=== PATIENT | female | born 1945 | race Hispanic/Latino ===

== ENCOUNTER 2017-12-31 07:35 | Inpatient (IN) | payer MEDICARE, MEDICAID ==
[2017-12-31] MEDS ORDERED: Meclizine HCl 25 MG TAB ONE (08:22)
[2017-12-31] MEDS ORDERED: Diazepam 10 MG/2 ML SYRINGE IVP SCH (08:30)
[2017-12-31 08:34] LABS: #Eosinphils 0.2 thou/uL (0.0-0.7); #Lymphocytes 2.2 thou/uL (1.20-3.40); #Monocytes 0.4 thou/uL (0.11-0.59); #Neutrophils 6.6 thou/uL (1.40-6.50); %Basophils 0.4 % (0.0-1.0); %Eosinophils 1.9 % (0.0-10.0); %Lymphocytes 23.6 % (21.0-51.0); %Monocytes 3.8 % (0.0-10.0); %Neutrophils 70.3 % (42.0-75.0); Hemoglobin 13.8 g/dL (12.0-16.0); Mean Corpuscular HGB CONC 33.2 g/dL (32.0-36.0); Mean Corpuscular Hemoglobin 31.6 pg (27.0-31.0); Mean Corpuscular Volume 95.3 fl (81.0-99.0); Platelet Count 272 thou/uL (130-400); RBC Distribution Width 11.6 % (11.5-14.5); Red Blood Cell (RBC) Count 4.35 mill/uL (4.20-5.40); White Blood Cell (WBC) Count 9.4 thou/uL (4.8-10.8)
[2017-12-31 08:53] LABS: ALT (SGPT) 25 U/L (8-55); AST (SGOT) 29 U/L (5-34); Acetaminophen Less than 6.0 mcg/mL (10.0-30.0); Albumin 3.9 g/dL (3.4-4.8); Alcohol Less than 10 mg/dL (Less than 10); Alkaline Phosphatase 134 U/L (40-150); Anion Gap 12 mmol/L (10-20); BUN (Urea Nitrogen) 11 mg/dL (9.8-20.1); Bilirubin, Total 0.5 mg/dL (0.2-1.2); CK (CPK) 115 U/L (29-168); Calc. Creatinine Clearance 0 mL/min (70-130); Calcium 9.6 mg/dL (7.8-10.44); Carbon Dioxide 29 mmol/L (23-31); Chloride 103 mmol/L (98-107); Estimated GFR-MDRD 67; Globulin 3.2 g/dL (2.4-3.5); Glucose 244 mg/dL (83-110); Potassium 3.8 mmol/L (3.5-5.1); Protein, Total 7.1 g/dL (6.0-8.3); Salicylate Less than 8.0 mg/dL (15.0-30.0); Sodium 140 mmol/L (136-145)
[2017-12-31 09:02] LABS: CKMB 1.4 ng/mL (0-6.6); Troponin I Less than 0.010 ng/mL (< 0.028)
--- NOTE | 2017-12-31 09:08 | CT ---
NONCONTRAST HEAD CT: HISTORY: Weakness. Dizziness. The patient stood up and began feeling weak. The patient fell and hit back of her head dresser. COMPARISON: None. TECHNIQUE: Noncontrast head CT is performed from the skull base to the skull vertex. FINDINGS: Small extraaxial hematoma along the left parietal convexity, near the vertex. Minimal mass effect of the underlying brain parenchyma. No midline shift. Basilar cisterns are patent. Age appropriate atrophy. Cortical turcios-white matter differentiation is preserved. Ventricles and sulci are patent and symmetric. White matter hypodensities and chronic small-vessel i schemic changes are noted. Adequate aeration of the sinuses and mastoid air cells. Minimal bilateral sphenoid sinus disease. T he calvarium is intact. IMPRESSION: Left extraaxial hematoma, near the vertex. Results of the study were discussed with Dr. Magaña 12/31/17 at 8:46 a.m. CODE CR POS: OFF
[2017-12-31 09:27] LABS: Bilirubin Negative (Negative); Blood, Urine Negative (Negative); Clarity CLEAR (Clear); Glucose, Urine (Dipstick) 250 mg/dL (Negative); Leukocyte Small (Negative); Nitrite Negative (Negative); Protein, Urine (Dipstick) Negative (Neg-Trace); Specific Gravity, Urine 1.011 (1.002-1.036); Urobilinogen 0.2 mg/dL (0.2-1.0)
[2017-12-31 09:30] LABS: Bacteria/HPF None Seen HPF (None Seen); Hyaline Casts/LPF 0-3 HYALINE CAST LPF (0-3 Hyaline); Pathc Cast-AUWi Flag 0.54 (0-2.49); RBC/HPF 0-3 HPF (0-3); Squamous Epithelial 0-3 HPF (0-3)
--- NOTE | 2017-12-31 09:37 | RAD ---
ONE VIEW CHEST: History: Dyspnea. Dizziness. Patient fell this morning. FINDINGS: Normal cardiac silhouette. Patchy interstitial and alveolar opacities throughout the lung parenchyma which may represent chronic change. No masses or consolidation. No pneumothorax or pleural effusion. IMPRESSION: Presumed chronic changes of the lung parenchyma. Superimposed infiltrate cannot be excluded. Continue d surveillance is warranted. POS: OFF
--- NOTE | 2017-12-31 09:49 | CT ---
CT OF THE CERVICAL SPINE PERFORMED WITHOUT CONTRAST ENHANCEMENT: History: Patient status post fall with neck injury. FINDINGS: Vertebral bodies are normal in height. There is disc narrowing at the C5-6 and C6-7 levels. There are degenerative facet changes present. At the C3-4 level, asymmetric left facet changes cause moderate left foraminal narrowing. There is mo re severe asymmetric changes at C4-5 on the left and more severe foraminal narrowing. There is some b orderline bilateral foraminal narrowing at the C5-6 and C6-7 levels. There is no CT evidence of fract ure. Lung apices show what appears to be some areas of airtrapping and chronic lung change with ground gla ss opacity interspersed with areas of air trapping and a more mosaic pattern. Bilateral thyroid nodules are noted. IMPRESSION: 1. No CT evidence of fracture or the cervical spine. 2. Bilateral thyroid nodules. 3. Lung changes as discussed above. POS: [facility]
--- NOTE | 2017-12-31 10:06 | CT ---
CT PULMONARY ANGIOGRAM WITH IV CONTRAST AND 3D POSTPROCESSING: HISTORY: Dyspnea, dizziness. FINDINGS: No filling defects are seen in the contrast-opacified pulmonary arterial vasculature to suggest pulmo nary embolism. No thoracic aortic aneurysm or dissection is seen. No pleural or pericardial effusio ns are identified. There are emphysematous changes in the lung macias bilaterally. There are degene rative changes in the spine. IMPRESSION: No CT evidence of pulmonary embolism. POS: [facility]
[2017-12-31 10:10] LABS: Cocaine Metabolite Screen Not Detected (NotDetected); Medtox Reader # READER 1; Methamphetamine Not Detected (NotDetected); Phencyclidine (PCP) Not Detected (NotDetected); THC/Cannabinoid Screen Not Detected (NotDetected)
[2017-12-31 10:11] LABS: Amphetamine Not Detected (NotDetected); Barbiturates Screen Not Detected (NotDetected); Benzodiazepine Screen Not Detected (NotDetected); Medtox Control Line Valid? VALID (VALID); Methadone Not Detected (NotDetected); Opiate Screen Not Detected (NotDetected); Oxycodone Screen Not Detected (NotDetected); Tricyclic Screen Not Detected (NotDetected)
[2017-12-31] MEDS ORDERED: Dextrose 50% Abboject 50 ML SYRINGE SLOW IVP PRN (11:14)
[2017-12-31] MEDS ORDERED: Ondansetron ODT 4 MG TAB PO PRN (11:14)
[2017-12-31] MEDS ORDERED: Dextrose 5% in Water 1,000 ML IV PRN (11:14)
[2017-12-31] MEDS ORDERED: hydrALAZINE 20 MG/ML VIAL SLOW IVP PRN ×2 (11:14→15:37)
[2017-12-31] MEDS ORDERED: Acetaminophen 500 MG TAB PO PRN (11:28)
[2017-12-31] MEDS ORDERED: ISOVUE-370 76%-LOCM 1 ML ONE (11:37)
--- NOTE | 2017-12-31 13:36 | ULT ---
BILATERAL CAROTID DUPLEX ULTRASOUND: HISTORY: Altered mental status. TECHNIQUE: Rodriguez scale ultrasound with color flow and spectral Doppler imaging of the extracranial carotid artery systems is performed bilaterally. FINDINGS: No significant intimal thickness or plaque formation is seen on either side. The peak systolic velocity in the right ICA measures 44 cm/s with an end-diastolic velocity of 7 cm/s and a systolic ratio of 0.46. The peak systolic velocity in the left ICA measures 83 cm/s with an end-diastolic velocity of 28 cm/s and a systolic ratio of 0.93. Flow in both vertebral arteries remains antegrade. IMPRESSION: No evidence of hemodynamically significant stenosis in either internal carotid artery. POS: [facility]
--- NOTE | 2017-12-31 14:23 | CON ---
DATE OF CONSULTATION: 12/31/2017 Fausto Suero PA-C, dictating for Willy Velez MD This is a 50 minutes initial patient consult in which greater than 50% of the exam was spent in couns eling and coordinating patient's care. The remainder of the exam was spent in review of patient's ma dical records and review of appropriate imaging studies. CHIEF COMPLAINT: Status post fall with left occipital region subdural hematoma. HISTORY OF PRESENT ILLNESS: Ms. Case is a pleasant 72-year-old female who presents to [facility] Emergency Room for the above complaints. Apparently, the patient has had intermittent dizziness f or the past several months and felt unsteady on her feet. She attempted to get out of bed and holdin g onto her dresser, but as soon as she let go became dizzy and fell on the back of the head. She is on 81 mg of aspirin. She does have hypertension and diabetes mellitus type 2 and states that when sh e gets dizzy, she typically checks her blood pressure and glucose levels and these have been stable o angel the past several weeks. She has no neck pain or arm pain complaints. She has no weakness compla ints or any weakness in any of the extremities. She does not typically use a cane or walker for gait stability. Review of the patient's head CT shows a small collection of subdural hematoma in the lef t parietal region that does not cause mass effect or midline shift. There is no evidence of skull fr acture. Review of patient's cervical spine CT shows a degenerative disk disease and spondylosis thro ugh the cervical spine, but no obvious acute abnormality and appears negative for fracture. PHYSICAL EXAMINATION: The patient is awake, alert, and appropriate. She has full strength in the bi lateral upper and bilateral lower extremities with no worrisome myelopathic features on exam includin g negative Baptiste's bilaterally and no increased tone. Her GCS currently is 15. She has no pronato r drift and she is able to complete index [id number] testing without difficulty. Pupils are equa l, round, and reactive bilaterally. She has no worrisome tenderness to palpation along the midline o f the cervical spine or in the bilateral musculature of the cervical spine. IMPRESSION AND DIAGNOSIS: Status post fall with a left parietal region small subdural hematoma. PLAN: I discussed the patient's case and imaging with Dr. Velez. At this time, the patient will be admitted for overnight observation with q. 2 hour neuro checks. I would like her systolic blood pre ssure to be less than 160 and elevate her head of bed at 30 degrees at all times. She has no fractur e on CT scan and no tenderness to palpation into the neck, she does not require use of the cervical s pine collar. She may advance her diet as tolerated. Our Trauma Service will admit the patient and h elp workup the patient's cause of dizziness. Please call with any changes in the patient's neurologi c status. Otherwise, we will follow up with a repeat head CT for tomorrow.
--- NOTE | 2017-12-31 16:12 | HP ---
DATE OF ADMISSION: 12/31/2017 CONSULTING PHYSICIAN: Jerry Magaña M.D. ADMITTING PHYSICIAN: Yoav Pillai D.O. CHIEF COMPLAINT: Left parietal subdural hematoma. HISTORY OF PRESENT ILLNESS: The patient reports that this morning she tried to get out of bed, felt weak and attempted to hold onto her dresser, but was unable to, falling over backwards and striking t he back of her head on the floor. She crawled back into bed and waited for some time hoping the feel ing would pass before she got out of bed and realized that she was still weak and unable to stand on her own. She then called 911 and was brought in by EMS to [place] ED. She was found upon evaluat ion to have a left parietal subdural hematoma. Neurosurgery was consulted. They recommended to admi t the patient to the stroke floor for observation overnight. PAST MEDICAL HISTORY: Significant for stroke 15 years ago, hypertension, diabetes mellitus, and hype rlipidemia. MEDICATIONS: Patient reports taking lisinopril and unknown diuretic, metformin, glipizide and insuli n of unknown type. The patient also reports taking a multivitamin daily. PAST SURGICAL HISTORY: The patient reports a history of tonsillectomy at 16 years old. FAMILY HISTORY: Mother of a cerebrovascular accident. ALLERGIES: The patient reports no allergies to medications. SOCIAL HISTORY: The patient denies drug use, alcohol use, or smoking. PSYCHIATRIC HISTORY: The patient denies any anxiety, depression or other psych history. REVIEW OF SYSTEMS: Significant for occasional headache, but otherwise negative except as mentioned i n the HPI. PHYSICAL EXAMINATION: VITAL SIGNS: BP 166/71, pulse 71, respirations 20, temperature 97.9, O2 sat 96% on room air. GENERAL APPEARANCE: Adult female who appears her stated age in no acute distress. HEENT: Head, her head is normocephalic and atraumatic. Eyes, PERRLA, EOMI. Ears, she has no blood or discharge in her external auditory canals bilaterally. Nose, her nares are patent without blood o r discharge. Mouth: Oropharynx is pink and moist. Dentition, she is partially edentulous but other [place] no trauma. NECK: Supple. Trachea is midline. She has no tenderness. RESPIRATORY: Her lungs are clear to auscultation bilaterally with normal effort. CARDIOVASCULAR: She has a regular rate and rhythm. Normal S1 and S2. Distal pulses 2+ bilaterally. ABDOMEN: Soft, obese, but nontender. Bowel sounds are normal. EXTREMITIES: She is neurovascularly intact x4. NEUROLOGIC: Her GCS is 15. She is alert and oriented x4. She has no focal neurologic findings. PSYCHIATRIC: Her mood and affect are appropriate. LABORATORY FINDINGS: Hematology: WBC is 9.4, hemoglobin 13.8, hematocrit 41.5, platelets 272. Chem istry: Sodium 140, potassium 3.8, chloride 103, bicarbonate 29, BUN 11, creatinine 0.83, glucose 244 , estimated GFR 67. Cardiac enzymes, troponin less than 0.10, CK-MB 1.4. Toxicology screen was nega tive. Urine screen is significant for glucose of 250, a small leukocyte esterase and urine wbcs of 7 -10. RADIOGRAPHIC FINDINGS: Noncontrast head CT. Impression: Left extraaxial hematoma, near the vertex. Chest x-ray, impression, presumed chronic changes of the lung parenchyma. Superimposed infiltrate cannot be excluded. Continued surveillance is warranted. Cervical spine CT, impression: 1. No CT evidence of fracture of the cervical spine. 2. Bilateral thyroid nodules. 3. Lung changes as discussed above. Chest and thorax CTA, impression: No CT evidence of pulmonary embolism. Carotid Doppler study, impression: No evidence of hemodynamically significant stenosis in either internal carotid artery. ASSESSMENT AND PLAN: 1. Status post ground level fall. 2. Left parietal subdural hematoma. PLAN: The patient will be admitted to the stroke floor for observation, monitoring of neurologic sta tus and repeat imaging in the morning. Pain control will be addressed and other supportive care breanna ures will be implemented as needed. Per Neurosurgery, no neurosurgical intervention is required at t his time. Patient will likely discharge home tomorrow if she remains stable. This patient was seen and examined along with Dr. Yoav Pillai who agrees with the assessment and plan.
[2017-12-31] MEDS ORDERED: Prevnar 13-Val Conj/PF 0.5 ML SYRINGE IM ONE (18:45)
--- NOTE | 2017-12-31 22:53 | PRG ---
DATE OF SERVICE: 12/31/2017 SUBJECTIVE: The patient is in hospital day #1 from fall possible syncopal episode. There are no new complaints at this time. No complaint of headache. The patient remains GCS 15. No acute issues at this time. OBJECTIVE: Vital signs have been reviewed, otherwise have been stable. Physical exam is unchanged f rom history and physical. ASSESSMENT AND PLAN: Continue care as noted in the history and physical. Continue to monitor. I wi ll reassess in the a.m. if there are any changes. Neurosurgery to continue to follow.
[2018-01-01 05:28] LABS: #Basophils 0.1 thou/uL (0.0-0.2); #Eosinphils 0.3 thou/uL (0.0-0.7); #Lymphocytes 2.7 thou/uL (1.20-3.40); #Monocytes 0.6 thou/uL (0.11-0.59); #Neutrophils 6.1 thou/uL (1.40-6.50); %Basophils 0.8 % (0.0-1.0); %Eosinophils 2.9 % (0.0-10.0); %Lymphocytes 27.3 % (21.0-51.0); %Monocytes 6.6 % (0.0-10.0); %Neutrophils 62.4 % (42.0-75.0); Hemoglobin 13.2 g/dL (12.0-16.0); Mean Corpuscular HGB CONC 32.8 g/dL (32.0-36.0); Mean Corpuscular Hemoglobin 31.5 pg (27.0-31.0); Mean Corpuscular Volume 95.9 fl (81.0-99.0); Mean Platelet Volume 8.1 fL (7.4-10.4); Platelet Count 277 thou/uL (130-400); RBC Distribution Width 11.6 % (11.5-14.5); White Blood Cell (WBC) Count 9.7 thou/uL (4.8-10.8)
[2018-01-01 05:35] LABS: Anion Gap 10 mmol/L (10-20); BUN (Urea Nitrogen) 11 mg/dL (9.8-20.1); Calc. Creatinine Clearance 82 mL/min (70-130); Calcium 9.4 mg/dL (7.8-10.44); Carbon Dioxide 29 mmol/L (23-31); Chloride 102 mmol/L (98-107); Estimated GFR-MDRD 71; Glucose 208 mg/dL (83-110); Potassium 3.3 mmol/L (3.5-5.1); Sodium 138 mmol/L (136-145)
--- NOTE | 2018-01-01 07:48 | CT ---
PRELIMINARY REPORT/[facility]/EMERGENCY AFTER HOURS PROCEDURE: EXAM: CT Head Without Intravenous Contrast CLINICAL HISTORY: 72 years old, female; Signs and symptoms; Other: Sdh; Patient HX: F/u sdh TECHNIQUE: Axial computed tomography images of the head/brain without intravenous contrast. COMPARISON: CT Brain WO Con 2017-12-31 08:34 FINDINGS: Small left subdural hematoma in the high left parietal region is not significantly changed in size or appearance in the short interval. No definite new hemorrhage in the interval. Very mild focal mass effect, unchanged. No significant midline shift. Ventricle size is unchanged. There is relatively symmetrical decreased attenuation in the periventricular white matter, likely fro m microvascular disease. There is an old lacunar infarct in the left basal ganglia region, unchanged. No definite acute infarct by CT. Minimal mucosal thickening in the sphenoid sinus. IMPRESSION: Small left subdural hematoma is not significantly changed in size or appearance. No definite new hemorrhage in the interval. Very mild focal mass effect, unchanged. No significant midline shift. No significant interval change. Thank you for allowing us to participate in the care of your patient. Dictated and Authenticated by: Brian Godoy MD 01/01/2018 4:55 AM Central Time ([place] & [place]) FINAL REPORT EMERGENCY AFTER HOURS CT BRAIN WITHOUT CONTRAST: Date: 01/01/18 COMPARISON: 12/31/17. FINDINGS/IMPRESSION: I agree with the findings and impression given in the preliminary report per [facility] physician. There is a small, stable left subdural hematoma. POS: OFF
[2018-01-01] MEDS ORDERED: Potassium Chloride 40 MEQ in Premix Bag 1 BAG IVPB SCH (08:00)
[2018-01-01] MEDS ORDERED: Potassium Chloride 40 MEQ, Admixture Fee 1 EACH in Sodium Chloride 0.9% 250 ML 250 ML IVPB SCH (08:00)
[2018-01-01] MEDS: Lisinopril 10 MG TAB PO SCH (09:22)
[2018-01-01] MEDS: Triamterene/Hydrochlorothiazide 37.5 mg/25 mg Tablet PO SCH (09:23)
--- NOTE | 2018-01-01 12:53 | PRG ---
DATE OF SERVICE: 01/01/2018 This is a 30 minutes initial hospital visit note in which 30 minutes were spent in review the imaging record, evaluation and examination of the patient, and formulation of a plan. Greater than 50% time was spent in counseling on Ms. Adri Case, date of 1945. CHIEF COMPLAINT: Small left acute subdural hematoma, status post fall. HISTORY OF PRESENT ILLNESS: I reviewed the notes of my colleague Fausto Suero PA-C, and agree wit h its content. Ms. Case is a very pleasant 72-year-old woman who has had dizziness in the past and fell. She is on a baby aspirin. Head CT demonstrated a very small subdural hematoma in the lef t parietal region. No worrisome mass effect or midline shift. CT scan of the neck was negative for acute abnormality. This morning on exam, she is alert, appropriate and has a GCS of 15 and her repea t head CT was stable. IMPRESSION AND PLAN: She may be dismissed at endpoint. There is no worrisome neurosurgical issue in regards to Ms. Case at this time. We will arrange for followup in my clinic. We discussed th is all with her. DIAGNOSIS: Left acute subdural hematoma.
[2018-01-01] MEDS: Insulin Regular 300 UNITS/3 ML VIAL SC PRN ×2 (13:38→17:50)
[2018-01-01 13:53] VITALS: BMI 32.4
--- NOTE | 2018-01-01 16:01 | PRG ---
DATE OF SERVICE: 01/01/2018 ATTENDING PHYSICIAN: Yoav Pillai D.O. SUBJECTIVE: The patient is a 72-year-old female who was admitted one day ago after a fall with resulting traumatic subdural hematoma. She has had close neurologic monitoring and repeat CT scan this morning is stable and she has remained GCS of 15. She is reporting generalized weakness. PHYSICAL EXAMINATION: VITAL SIGNS: Temperature 98.5, pulse 93, respirations 20, O2 sat 93% on room air, blood pressure 144/73. CONSTITUTIONAL: Patient is sitting on edge of bed, alert and oriented, in no acute distress. PULMONARY: No respiratory distress noted. RESPIRATORY: Even and unlabored. Bilateral breath sounds clear. CARDIOVASCULAR: Regular rate and rhythm. No ectopy on telemetry strip. ABDOMEN: Soft, nontender, and nondistended. EXTREMITIES: Moves all extremities well. Cap refill brisk. Neurovascularly intact. NEUROLOGIC: GCS of 15. Awake, alert and oriented x3. DIAGNOSTIC IMAGING: Small left subdural hematoma. ASSESSMENT: 1. Status post ground level fall. 2. Traumatic subdural hematoma. 3. Neurosurgery following. 4. Generalized weakness. PLAN: 1. Patient has been cleared for discharge by Neurosurgery Service. She is to follow up with Dr. Velez, which he will arrange in his clinic. 2. PT/OT evaluation. 3. Rehabilitation referral. 4. A 2D echocardiogram today. 5. Carotid Doppler bilateral study done yesterday with no evidence of significant stenosis in carotids. The patient was seen and examined with Dr. Pillai on morning rounds. Dr. Pillai agrees with the assessment and plan. [facility]
[2018-01-02] MEDS: Triamterene/Hydrochlorothiazide 37.5 mg/25 mg Tablet PO SCH (08:14)
[2018-01-02] MEDS: Insulin Regular 300 UNITS/3 ML VIAL SC PRN ×3 (08:15→16:41)
[2018-01-02] MEDS: Lisinopril 10 MG TAB PO SCH (08:16)
[2018-01-02] MEDS: metFORMIN 500 MG TAB PO SCH ×2 (08:56→16:41)
[2018-01-02] MEDS: glipiZIDE 5 MG TAB PO SCH (16:41)
--- NOTE | 2018-01-02 17:34 | PRG ---
DATE OF SERVICE: 01/02/2018 ATTENDING PHYSICIAN: Dr. Yova Pillai. SUBJECTIVE: The patient is a 72-year-old female who was admitted on 12/31/2017 after suffering a adelfo und level fall, resulting in a traumatic subdural hematoma. She has been neurologically normal throu ghout her stay and vocalizes no complaints. On exam this morning, she does report a history of gener alized weakness, which she says was the result of her falling. OBJECTIVE: VITAL SIGNS: Blood pressure 116/71, pulse 92, temperature 97.4, respirations 16 and O2 sat 93% on ro om air. GENERAL: The patient is a middle-aged adult female in no acute distress. HEENT: She is normocephalic and atraumatic. RESPIRATORY: Breath sounds are clear to auscultation bilaterally with normal effort. CARDIOVASCULAR: She has regular rate and rhythm. Normal S1 and S2. ABDOMEN: Soft, obese and nontender. Bowel sounds are normal. EXTREMITIES: She is neurovascularly intact x4. She moves all extremities well. NEUROLOGIC: She has a GCS of 15. She is alert and oriented x3. She has no focal deficits. LABORATORY FINDINGS: Today's labs are significant for a glucose of 260. RADIOGRAPHIC FINDINGS: There are no radiographs reviewed today. ASSESSMENT: 1. Status post ground level fall. 2. Traumatic subdural hematoma. 3. Generalized weakness. PLAN: The patient continues to be stable neurologically and medically she appears to be stable for d ischarge pending evaluation of echocardiogram, which was ordered. She will likely discharge home, gi usama that she has been evaluated by rehab and found to not be an appropriate rehab candidate. She has also been found to be inappropriate for nursing home. The patient reports that she has a daughte r who will come and stay with her for a week as well as an ex- who will come and stay with her and help her out. She will likely be discharged to home this weekend with outpatient home health co [place] to physical and occupational therapy.
[2018-01-03] MEDS: Insulin Regular 300 UNITS/3 ML VIAL SC PRN ×2 (08:17→10:56)
[2018-01-03] MEDS: glipiZIDE 5 MG TAB PO SCH (08:19)
[2018-01-03] MEDS: metFORMIN 500 MG TAB PO SCH (08:19)
[2018-01-03] MEDS: Triamterene/Hydrochlorothiazide 37.5 mg/25 mg Tablet PO SCH (08:19)
[2018-01-03] MEDS: Lisinopril 10 MG TAB PO SCH (08:19)
[2018-01-03 11:20] VITALS: BP 116/60; TEMP 98.1
--- NOTE | 2018-01-03 13:45 | DIS ---
DATE OF ADMISSION: 12/31/2017 DATE OF DISCHARGE: 01/03/2018 ADMITTING PHYSICIAN: Dr. Yoav Pillai. DISCHARGING PHYSICIAN: Dr. Yoav Pillai. CONSULTING PHYSICIAN: Dr. Willy Velez, Neurosurgery. DISCHARGE CONDITION: Good. DISCHARGE DISPOSITION: Discharged to home. DISCHARGE MEDICATIONS: No new prescriptions. The patient may resume home medications. DISCHARGE FOLLOWUP: Follow up Dr. Velez 10 days; Dr. Galvan, PCP [address] Pillai p[address]r.n. DISCHARGE ACTIVITY: As tolerated. BRIEF HISTORY OF HOSPITALIZATION: Ms. Case is a 72-year-old female who presented to [facility] after a ground level fall. Apparently, she has had intermittent dizziness and felt lightheaded on the day of admission. She stated she became weak and was unable to continue standing and fell back, striking her head on the dressing room floor. She was on 81 mg of home aspirin. She was transported to [facility] where diagnostic evaluation identified a left parietal region small subdural hematoma. She was evaluated in the ER by Dr. Pillai and admitted to the surgical floor. She was also evaluated by Dr. Velez, neurosurgeon. He did not recommend any neurosurgical intervention. She had bilateral carotid duplex study, which did not show any significant stenosis. She also underwent an echocardiogram, which showed normal ventricular size and ejection fraction greater than 65% to 70%. She mobilized with physical and occupational therapy who recommended outpatient physical therapy. They also recommended a rolling walker. Case management was consulted for discharge planning, arranging for DME and set up outpatient or home health with physical therapy. She is to discharge home with family. She was given discharge teaching followup information, and strict return precautions. She is to not take any aspirin or aspirin containing medications until cleared by Dr. Velez in followup. She will follow up with Dr. Pillai in a p.r.n. fashion. She is also to follow up with her PCP in 1 week for continued evaluation. She reports understanding of all these discharge instructions. The patient was seen and examined with Dr. Pillai on the day of discharge. Dr. Pillai agrees with the assessment and plan for discharge. [facility]
== END 2018-01-03 14:57 | disposition home health service (06) | DRG 87 ==
LOC: ERS 07:35 → ERHOLD 10:01 → 2NO 15:28
PROVIDERS: ADMIT Surgery; ATTEND Surgery
DX: S06.5X0A Traumatic subdural hemorrhage without loss of consciousness, initial encounter (principal); R42 Dizziness and giddiness; E11.9 Type 2 diabetes mellitus without complications; I10 Essential (primary) hypertension; Z23 Encounter for immunization; W01.198A Fall on same level from slipping, tripping and stumbling with subsequent striking against other object, initial encounter; Z79.82 Long term (current) use of aspirin; E78.5 Hyperlipidemia, unspecified; Z79.4 Long term (current) use of insulin; Z86.73 Personal history of transient ischemic attack (TIA), and cerebral infarction without residual deficits; R53.1 Weakness; R40.2413 Glasgow coma scale score 13-15, at hospital admission
CPT/HCPCS: 36415; 36416; 70450; 71045; 71275; 72125; 80048; 80053; 80306; 80307; 81003; 81015; 82553; 83735; 84100; 84484; 85025; 85379; 90471; 90670; 93005; 93306; 93880; 94760; G0009; G0390; G8978-GP-CK; G8979-GP-CJ; G8987-GO-CJ; G8988-GO-CI; J1815; J3360; J3480; J7050

== ENCOUNTER 2018-01-21 09:41 | Outpatient (CLI) | payer MEDICARE, MEDICAID ==
--- NOTE | 2018-01-21 11:35 | ULT ---
PELVIC ULTRASOUND: Date: 01/21/18 HISTORY: Weight loss. Uterine prolapse. FINDINGS: Multiple longitudinal and transverse images of the pelvis obtained using a multihertz curvilinear tra nsducer. Real-time and color flow images were used to evaluate the pelvis. Images demonstrate the uterus to measure 5.7 x 4.2 x 2.8 cm. No evidence of uterine masses seen. The right and left ovaries are not visualized. No evidence of free pelvic fluid seen. IMPRESSION: Unremarkable uterus with nonvisualization of the ovaries. POS: [facility]
--- NOTE | 2018-01-21 11:47 | ULT ---
ABDOMINAL ULTRASOUND COMPLETE: Date: 01/21/18 HISTORY: 72-year-old female with history of weight loss. FINDINGS: Multiple gallstones are noted within the gallbladder. There is no significant gallbladder wall thicke les or pericholecystic fluid. Common bile duct is 0.5 cm. There is coarse increased liver echogenici ty consistent with nonspecific diffuse hepatic parenchymal process. Visualized pancreas, IVC, aorta, and spleen are unremarkable. No renal hydronephrosis. No abscess or abnormal fluid collection. IMPRESSION: Evidence for mobile echogenic foci within the gallbladder, evidence for multiple gallstones. No ducta l dilatation. Coarse increased liver echogenicity consistent with nonspecific diffuse hepatic parench ymal process. No other significant abnormality. POS: [facility]
== END 2018-01-21 09:42 | disposition home or self-care (01) ==
LOC: ULT 09:41
PROVIDERS: ATTEND Family Medicine
DX: R63.4 Abnormal weight loss (principal); K80.20 Calculus of gallbladder without cholecystitis without obstruction
CPT/HCPCS: 76700; 76856

== ENCOUNTER 2018-01-22 06:45 | Day surgery (SDC) | payer MEDICARE, MEDICAID ==
[2018-01-21 14:01] VITALS: BMI 30.9
[~2018-01-22 06:45] MED LIST: FLU VACC TS2017-18 (>65YR) 0.5 ML SYRINGE IM ONE
[2018-01-22] MEDS ORDERED: Sodium Bicarbonate 2.4 MEQ/5 ML ONE (09:17)
[2018-01-22] MEDS ORDERED: Lidocaine 1% PF 5 ML VIAL ONE (09:17)
[2018-01-22 09:20] VITALS: BP 118/61; TEMP 97.7
--- NOTE | 2018-01-22 09:50 | ULT ---
THYROID SONOGRAM: Date: 01/22/18 HISTORY: Abnormal CAT scan. Thyroid nodules. FINDINGS: Right thyroid lobe is 4.4 cm and has a heterogeneous echotexture with multiple oval nodules. Almost a ll are cystic. The largest is at the inferior pole measuring up to 1.4 cm. Isthmus is 0.4 cm. Left thyroid lobe is 3.6 cm. Heterogeneous nodules, slightly hypoechoic, are 1.4 cm at the superior a nd inferior poles. There is subtle calcification with shadowing involving each of these nodules. IMPRESSION: Multiple nonspecific bilateral thyroid nodules. Sonographic guided FNA has been requested. One of the dominant nodules of the left thyroid lobe, containing calcification, will be sampled. POS: [facility]
--- NOTE | 2018-01-22 11:18 | ULT ---
SONOGRAPHIC-GUIDED FINE NEEDLE ASPIRATION LEFT THYROID LOBE MASS: FINDINGS: After explaining the procedure and answering all questions, the dominant nodule at the superior pole left thyroid lobe containing a coarse calcification was visualized. Sterile technique, buffered loca l anesthesia, sonographic guidance, and a medial approach were used to carefully advance a 25-gauge n eedle into the heterogeneous nodule. Position was confirmed with sonography. A total of 4 passes we re made and submitted to pathology for evaluation. Post procedure imaging shows no evidence of compl ication. The patient tolerated the procedure well and was dismissed in good condition. IMPRESSION: Technically successful sonographic-guided fine needle aspiration of left thyroid lobe mass. Patholog y is pending. POS: [facility]
== END 2018-01-22 08:40 | disposition home or self-care (01) ==
LOC: ULT 06:45
PROVIDERS: ATTEND Specialist
PROC: 0GBG3ZX Excision of Left Thyroid Gland Lobe, Percutaneous Approach, Diagnostic (ICD-10-PCS; principal; 2018-01-22)
DX: E04.1 Nontoxic single thyroid nodule (principal); K21.9 Gastro-esophageal reflux disease without esophagitis; R09.82 Postnasal drip; I10 Essential (primary) hypertension; E11.9 Type 2 diabetes mellitus without complications; E78.5 Hyperlipidemia, unspecified; Z86.73 Personal history of transient ischemic attack (TIA), and cerebral infarction without residual deficits; Z79.4 Long term (current) use of insulin; Z79.899 Other long term (current) drug therapy
CPT/HCPCS: 10022; 76536; 76942; 88173; J2001

== ENCOUNTER 2018-02-02 12:58 | Outpatient (CLI) | payer MEDICARE, MEDICAID ==
--- NOTE | 2018-02-02 16:05 | CT ---
NONCONTRAST CT BRAIN: INDICATIONS: History of subdural hematoma. COMPARISON: Prior exam from 01/01/2018. FINDINGS: The subdural hematoma overlying the left frontal parietal convexity is no longer demonstrated. The s eptum pellucidum and third ventricle are midline. Small hypodensity within the left globus pallidus is stable. Mild chronic small vessel and ischemic changes are noted. IMPRESSION: 1. Resolution of previously seen left-sided subdural hematoma. 2. Stable chronic ischemic change. POS: [facility]
== END 2018-02-02 12:59 | disposition home or self-care (01) ==
LOC: TBSIIMAG 12:58
PROVIDERS: ATTEND Surgery
DX: S06.5X0A Traumatic subdural hemorrhage without loss of consciousness, initial encounter (principal)
CPT/HCPCS: 70450

== ENCOUNTER 2018-02-03 12:27 | Outpatient (CLI) | payer MEDICARE, MEDICAID | END 2018-02-03 12:28 | disposition home or self-care (01) | LOC: BICMAMMO 12:27 | PROVIDERS: ATTEND Family Medicine | DX: Z12.31 Encounter for screening mammogram for malignant neoplasm of breast (principal) | CPT/HCPCS: 77063; 77067 ==

== ENCOUNTER 2018-03-02 13:09 | Outpatient (CLI) | payer MEDICARE, MEDICAID ==
--- NOTE | 2018-03-02 15:55 | RAD ---
LUMBAR SPINE 4 VIEWS: HISTORY: M54.60, lumbar radiculopathy. COMPARISON: None. FINDINGS: There is a compression fracture at L1 with approximately 20-25% anterior height loss. No retropulsio n. Moderate degenerative disk space height loss throughout the lumbar spine. Moderate narrowing of the spinous processes. No significant listhesis with flexion or extension. IMPRESSION: L1 compression fracture with approximately 20-25% anterior height loss. POS: [facility]
== END 2018-03-02 13:10 | disposition home or self-care (01) ==
LOC: TBSIIMAG 13:09
PROVIDERS: ATTEND Surgery
DX: M54.16 Radiculopathy, lumbar region (principal); M48.56XA Collapsed vertebra, not elsewhere classified, lumbar region, initial encounter for fracture; M48.8X6 Other specified spondylopathies, lumbar region
CPT/HCPCS: 72110

== ENCOUNTER 2018-05-06 12:47 | Outpatient (CLI) | payer MEDICARE, MEDICAID ==
--- NOTE | 2018-05-06 13:51 | RAD ---
LUMBAR SPINE TWO VIEWS: 05/06/2018 HISTORY: Follow-up L1 vertebral body fracture. COMPARISON: 03/02/2018 FINDINGS: There are five [id number] lumbar-type vertebral bodies. A compression fracture along the superi or endplate of the L1 vertebral body is again seen. The degree of height loss is unchanged compared to that study. The remaining vertebral body heights are within normal limits. Multilevel degenerati ve changes are again seen within the visualized lower thoracic, as well as involving the lumbar spine . There is grade 1 anterolisthesis of L5 on S1, which is unchanged from the prior exam. Facet degen erative changes are present in the lower lumbar spine. Vascular calcifications are again seen in the abdominal aorta and iliac arteries. IMPRESSION: 1. Stable height loss involving the compression fracture of the L1 vertebral body. No new fracture is visualized. 2. Stable grade 1 anterolisthesis of L5 on S1. On prior study, there was Grade I anterolisthesis of L4 on L5 seen on flexion but corrected on neutral and with extension views. 3. Stable multilevel degenerative changes. POS: [facility]
== END 2018-05-06 12:48 | disposition home or self-care (01) ==
LOC: TBSIIMAG 12:47
PROVIDERS: ATTEND Surgery
DX: S32.019A Unspecified fracture of first lumbar vertebra, initial encounter for closed fracture (principal); M47.896 Other spondylosis, lumbar region; M43.17 Spondylolisthesis, lumbosacral region; M43.16 Spondylolisthesis, lumbar region; R29.890 Loss of height
CPT/HCPCS: 72100

== ENCOUNTER 2018-08-07 10:59 | Day surgery (SDC) | payer MEDICARE, MEDICAID ==
[2018-08-06 09:00] VITALS: BMI 26.5
[2018-08-07] MEDS ORDERED: Lidocaine 1% PF 5 ML VIAL ONE (15:30)
[2018-08-07] MEDS ORDERED: PROPOFOL 200 MG/20 ML VIAL ONE (15:30)
--- NOTE | 2018-08-07 15:31 | EKG ---
Test Reason : PREOP Blood Pressure : / mmHG Vent. Rate : 080 BPM Atrial Rate : 080 BPM P-R Int : 134 ms QRS Dur : 078 ms QT Int : 376 ms P-R-T Axes : -09 023 032 degrees QTc Int : 433 ms Normal sinus rhythm Normal ECG When compared with ECG of 31-DEC-2017 07:41, No significant change was found Confirmed by MONAE MARIANO, SBren ([id number]) on 08/07/2018 3:30:39 PM Referred By: KARINA Confirmed By:DR. Zaira LICONA MD
[2018-08-07] MEDS ORDERED: Fentanyl 100 MCG/2 ML VIAL ONE (15:49)
[2018-08-07] MEDS ORDERED: HYDROcodone/Acetaminophen 5/325 mg Tablet ONE (16:28)
--- NOTE | 2018-08-07 16:57 | MRI ---
NONCONTRAST MRI CERVICAL SPINE 08/07/18 HISTORY: Neck pain which occurred a few weeks ago after falling. Neck pain radiates down to both arms and sens itive to touch in hands. COMPARISON: None available. FINDINGS: The visualized base of the brain has a normal appearance. Cervicomedullary junction is normal in sign al intensity. There is minimal mucosal thickening in the sphenoid sinuses. There is a focus of increased T1 and T2 weighted signal intensity seen within the C2 vertebral body p robably related to focal area of fat or small hemangioma. C2-3 level: There is a mild broad based disc osteophyte complex with mild facet degenerative changes , greater on the left. There is no significant narrowing of the central spinal canal on the right and the right neural foramen is patent. There is mild left sided neural foraminal narrowing. C3-4 level: There is a broad based disc osteophyte complex with facet hypertrophic changes present, primarily on the left. The findings result in severe left sided neural foraminal narrowing. There is mild right sided neural foraminal narrowing with only mild effacement of the ventral subarachnoid spa ce. C4-5 level: There is mild broad based disc osteophyte complex. Mild facet degenerative changes are pr esent. There is mild right and moderate to severe left sided neural foraminal narrowing. There is mil d effacement of the ventral subarachnoid space without encroachment on the spinal cord. C5-6 level: There is loss of intervertebral disc height. There is a broad based disc osteophyte compl ex and facet hypertrophic changes. There is moderate left and mild to moderate right sided neural for aminal narrowing. There is mild narrowing of the central spinal canal with mild flattening of the ant erior aspect of the spinal cord. Normal signal intensity is present in the spinal cord at this level. C6-7 level: There is mild loss of intervertebral disc height. There is a broad based disc osteophyte complex noted. This narrows the ventral subarachnoid space. Right neural foramen is patent, but there is moderate left sided neural foraminal narrowing. Subcentimeter focus of increased T2 weighted sign al intensity seen in the lateral aspect of the left neural foramen which likely represents a small di lated nerve root sleeve. C7-T1 level: There is no disc bulge or disc herniation. Central spinal canal and neural foramina are widely patent. IMPRESSION: Multilevel degenerative changes in the cervical spine as described above. POS: [facility]
== END 2018-08-07 16:50 | disposition home or self-care (01) ==
LOC: SDC/OP 10:59
PROVIDERS: ATTEND Specialist
DX: M47.12 Other spondylosis with myelopathy, cervical region (principal); M47.22 Other spondylosis with radiculopathy, cervical region; F40.240 Claustrophobia
CPT/HCPCS: 72141; 93005; 93010; 96374; J2001; J2704; J3010

== ENCOUNTER 2019-02-16 09:26 | Outpatient (CLI) | payer MEDICARE, MEDICAID ==
--- NOTE | 2019-02-16 10:40 | ULT ---
THYROID ULTRASOUND: INDICATION: Follow-up thyroid nodules COMPARISON: Prior exam dated 01/22/2018 FINDINGS: Thyroid isthmus measures 0.5 cm. The right thyroid lobe measures 5.2 x 2.1 x 1.5 cm. There is a 1.5 cm TIRADS 1 cyst within the inferi or pole of the right thyroid lobe which is relatively stable to the prior exam. There is a 1.3 cm TIR ADS 1 cyst within the superior pole of the right thyroid lobe. This is slightly more pronounced than seen on the comparison examination. An additional 9 mm TIRADS 1 cyst is seen within the superior pole of the right thyroid lobe. The left thyroid lobe measures 4.8 x 1.9 x 1.4 cm. There are 2 separate solid TIRADS 3 nodules seen w ithin the superior pole and mid to inferior pole of the left thyroid gland. These are stable. There i s a 9 mm TIRADS 1 cyst within the inferior pole of the left thyroid gland. IMPRESSION: Multinodular goiter. Stable TIRADS 1 and TIRADS 3 lesions within the right and left thyroid lobe. Rec ommend sonographic follow up as clinically indicated. Transcribed Date/Time: 02/16/2019 10:51 AM
== END 2019-02-16 09:27 | disposition home or self-care (01) ==
LOC: BICULT 09:26
PROVIDERS: ATTEND Specialist
DX: E04.2 Nontoxic multinodular goiter (principal); E07.9 Disorder of thyroid, unspecified
CPT/HCPCS: 76536

== ENCOUNTER 2019-03-01 15:55 | Outpatient (CLI) | payer MEDICARE, OTHER ==
--- NOTE | 2019-03-01 17:18 | RAD ---
CHEST PA AND LATERAL TWO VIEWS: History: Cough and congestion for two weeks. Comparison: 12-31-17 FINDINGS: Extensive bilateral interstitial, linear, and reticular nodular parenchymal changes throughout both l ungs with possible mild progression when compared to the prior 2018 study, evidence for nonspecific c hronic interstitial lung disease. It would be difficult to absolutely exclude the possibility of some acute interstitial edema or atypical bilateral pneumonitis. No confluent lobar pneumonia. No signifi cant pleural effusion. No cardiomegaly. IMPRESSION: Extensive bilateral interstitial, linear, and reticular nodular parenchymal changes, probably all a c onsiderable component of chronic interstitial lung disease. Correlate clinically with the possibility of some associated acute underlying atypical bilateral interstitial pneumonitis or edema. No cardiom egaly or pleural effusion, however. Atherosclerosis of the aorta. POS: [facility]
== END 2019-03-01 15:56 | disposition home or self-care (01) ==
LOC: BICRAD 15:55
PROVIDERS: ATTEND Family Medicine
DX: R05 Cough (principal); I70.0 Atherosclerosis of aorta; R91.8 Other nonspecific abnormal finding of lung field
CPT/HCPCS: 71046

== ENCOUNTER 2019-03-02 09:26 | Emergency (ER) | payer MEDICARE, OTHER ==
[2019-03-02 10:16] LABS: #Basophils 0.1 thou/uL (0.0-0.2); #Eosinphils 0.7 thou/uL (0.0-0.7); #Lymphocytes 2.5 thou/uL (1.20-3.40); #Monocytes 0.5 thou/uL (0.11-0.59); #Neutrophils 5.9 thou/uL (1.40-6.50); %Eosinophils 7.1 % (0.0-10.0); %Lymphocytes 26.1 % (21.0-51.0); %Monocytes 5.5 % (0.0-10.0); %Neutrophils 60.3 % (42.0-75.0); Hemoglobin 11.9 g/dL (12.0-16.0); Mean Corpuscular HGB CONC 32.5 g/dL (32.0-36.0); Mean Corpuscular Hemoglobin 30.1 pg (27.0-31.0); Mean Corpuscular Volume 92.5 fL (78.0-98.0); Mean Platelet Volume 7.6 fL (7.4-10.4); Platelet Count 390 thou/uL (130-400); RBC Distribution Width 11.1 % (11.5-14.5); Red Blood Cell (RBC) Count 3.97 mill/uL (4.20-5.40); White Blood Cell (WBC) Count 9.7 thou/uL (4.8-10.8)
[2019-03-02 10:41] LABS: ALT (SGPT) 10 U/L (8-55); AST (SGOT) 15 U/L (5-34); Albumin 3.7 g/dL (3.4-4.8); Alkaline Phosphatase 106 U/L (40-150); Anion Gap 16 mmol/L (10-20); BUN (Urea Nitrogen) 14 mg/dL (9.8-20.1); Bilirubin, Total 0.4 mg/dL (0.2-1.2); CK (CPK) 23 U/L (29-168); Calc. Creatinine Clearance 0 mL/min (70-130); Calcium 10.1 mg/dL (7.8-10.44); Carbon Dioxide 25 mmol/L (23-31); Chloride 103 mmol/L (98-107); Estimated GFR-MDRD 71; Globulin 3.5 g/dL (2.4-3.5); Glucose 106 mg/dL (83-110); Potassium 3.8 mmol/L (3.5-5.1); Protein, Total 7.2 g/dL (6.0-8.3); Sodium 140 mmol/L (136-145)
== END 2019-03-02 11:34 | disposition home or self-care (01) ==
LOC: ERS 09:26
DX: J18.9 Pneumonia, unspecified organism (principal); E11.9 Type 2 diabetes mellitus without complications; E78.5 Hyperlipidemia, unspecified; I10 Essential (primary) hypertension; Z86.73 Personal history of transient ischemic attack (TIA), and cerebral infarction without residual deficits
CPT/HCPCS: 36415; 80053; 82550; 83605; 83880; 84484; 85025; 87040; 93005

== ENCOUNTER 2019-04-20 09:44 | Outpatient (CLI) | payer MEDICARE, MEDICAID ==
--- NOTE | 2019-04-20 10:10 | RAD ---
CHEST 2 VIEWS: HISTORY: Cough and congestion for 2 weeks. COMPARISON: 03/01/2019. FINDINGS: Extensive interstitial and reticulonodular parenchymal changes throughout both lungs, evidence for ex tensive chronic interstitial lung disease. No new confluent pneumonia, overt edema, or pleural effus ion. IMPRESSION: 1. Stable appearance from prior study. 2. Extensive chronic interstitial lung disease. No acute pneumonia. POS: [facility]
== END 2019-04-20 09:45 | disposition home or self-care (01) ==
LOC: RAD 09:44
PROVIDERS: ATTEND Internal Medicine Pulmonary Disease
DX: R06.00 Dyspnea, unspecified (principal); J98.4 Other disorders of lung
CPT/HCPCS: 71046

== ENCOUNTER 2022-04-23 09:51 | Outpatient (CLI) | payer MEDICARE, MEDICAID | END 2022-04-23 09:52 | disposition home or self-care (01) | LOC: BICMAMMO 09:51 | PROVIDERS: ATTEND Family Medicine | DX: Z13.820 Encounter for screening for osteoporosis (principal); N95.9 Unspecified menopausal and perimenopausal disorder | CPT/HCPCS: 77080 ==

== ENCOUNTER 2024-07-09 09:09 | Outpatient (CLI) | payer OTHER, MEDICAID | END 2024-07-09 09:10 | disposition home or self-care (01) | LOC: BICRAD 09:09 | PROVIDERS: ATTEND Family Medicine | DX: M54.50 Low back pain, unspecified (principal); M47.816 Spondylosis without myelopathy or radiculopathy, lumbar region | CPT/HCPCS: 72100 ==